=== PATIENT | male | born 1980 | race Caucasian/White ===

== ENCOUNTER 2022-01-04 08:21 | Emergency (ER) | payer BC ==
[2022-01-04 08:27] VITALS: PULSE 48; RESP 18; TEMP 97.6
[2022-01-04] MEDS ORDERED: SODIUM CHLORIDE 0.9% 1,000 ML IV STA (08:35)
[2022-01-04] MEDS ORDERED: KETOROLAC 15 MG/ML 1 ML VIAL IVP STA (08:35)
[2022-01-04 08:50] LABS: Appearance,Urine Clear (Clear); Bilirubin,Urine Negative (Negative); Blood,Urine Negative (Negative); Color,Urine Yellow; Glucose,Urine (UA) Negative (Negative); Ketones,Urine Trace (Negative); Leukocyte Esterase,Urine Negative (Negative); Nitrite,Urine Negative (Negative); PH, Urine 5.5 (5.0-8.0); Protein,Urine Trace (Negative); Specific Gravity,Urine 1.026 (1.001-1.035); Urobilinogen,Urine <2.0 mg/dL (<2.0)
--- NOTE | 2022-01-04 08:54 | ED ---
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 States it started yesterday and is worse somewhat with movement. Describes a sharp, achy. Worse in the last night somersaulted became nauseous. States it does not radiate much, isolated to the left flank as well as towards the left CVA. Denies any hematuria or dysuria. Denies any history of nephrolithiasis in himself but does endorse a history in family members. States the pain is improved today but is uncertain what caused it. States he does have a history of broken ribs on the right side, however not on the left. Denies any current nausea or chest pain. Denies any shortness of breath. His no other acute complaints at this time. Presents for further evaluation. - Related Data Home Medications Medication Instructions Recorded Confirmed No Known Home Medications 01/04/22 01/04/22 Allergies Allergy/AdvReac Type Severity Reaction Status Date / Time No Known Allergies Allergy Verified 01/04/22 10:03 Review of Systems ROS Statement: Those systems with pertinent positive or pertinent negative responses have been documented in the HPI. Review of Systems: CONST: Denies fever EYES: Denies blurry vision ENT: Denies nasal congestion C/V: Denies Chest pain RESP: Denies shortness of breath GI: Endorses left flank pain. : Denies dysuria SKIN: Denies rash. MSK: Denies joint pain. NEURO: Denies headache ROS Other: All systems not noted in ROS Statement are negative. Past Medical History Past Medical History: No Reported History Past Surgical History: Orthopedic Surgery Past Psychological History: No Psychological Hx Reported Smoking Status: Never smoker Past Alcohol Use History: Occasional Past Drug Use History: None Reported General Exam - General Exam Comments Initial Comments: General: Appears in no acute distress. HEAD: Normal with no signs of head trauma. EYES: PERRLA, EOMI, conjunctiva normal, no discharge. ENT: Hearing grossly intact, normal oropharynx. RESPIRATORY: Clear breath sounds bilaterally. No wheezes, rales, or rhonchi. C/V: Regular rate and rhythm. S1 and S2 auscultated, no edema, peripheral pulses 2+ and intact throughout ABD: Abd is soft, nontender, nondistended. There is some mild left flank tenderness to palpation with what appears to be slight radiation towards the left CVA. Seems to be more anterior posterior and saline to the left CVA. Could be musculoskeletal in nature, but cannot rule out symptomatic nephrolithiasis. EXT: Normal range of motion, no obvious deformity SKIN: No rashes or lesions observed on exposed skin. NEURO: Alert and oriented 4. Limitations: no limitations Course Vital Signs 01/04/22 01/04/22 08:24 11:18 Temperature 97.6 F Pulse Rate 48 L Respiratory 18 18 Rate Blood Pressure 116/68 104/63 O2 Sat by Pulse 100 98 Oximetry Medical Decision Making - Medical Decision Making Based on the patient's presentation and physical exam, patient could be having symptomatic left nephrolithiasis versus muscular skeletal pain. Did recommend that we obtain a urine study, x-rays, as well as basic labs. He was in agreement this plan. Will be symptomatically treated with IV fluids and pain meds. Vital signs are within normal limits. 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 Laboratory studies are all unremarkable. There was a delay in obtaining CMP due to clotting 2. Patient does have trace ketones in urine but otherwise unremarkable. Imaging revealed a possible right-sided pneumonia versus atelectasis, and patient has no symptoms and does not clinically correlate. Likely atelectasis. KUB x-ray reveals no acute findings. Renal ultrasound reveals no acute findings. On reevaluation, patient is feeling improved. I discussed is negative workup. I do believe this is likely muscle strain. He was in agreement. Patient was instructed to use [id number] analgesia. He will be discharged home at this time with close follow-up with PCP, who is in [facility]. Patient will return if he has any further complaints while he is in the area. I instructed the patient to follow up with their PCP in the next 3 days. I explained that the patient should return to the emergency department if they experience any worsening symptoms. Strict return precautions were discussed with the patient. The patient expressed understanding of these instructions. I answered all questions that the patient had. The patient was discharged home in good condition with their prescriptions and follow up information. - Lab Data Result diagrams: 01/04/22 08:39 01/04/22 10:05 Lab Results 01/04/22 01/04/22 01/04/22 Range/Units 08:39 08:39 10:05 WBC 8.7 (3.8-10.6) k/uL RBC 4.19 L (4.30-5.90) m/uL Hgb 13.9 (13.0-17.5) gm/dL Hct 40.6 (39.0-53.0) % MCV 96.9 (80.0-100.0) fL MCH 33.3 (25.0-35.0) pg MCHC 34.3 (31.0-37.0) g/dL RDW 12.2 (11.5-15.5) % Plt Count 206 (150-450) k/uL MPV 8.0 Neutrophils % 74 % Lymphocytes % 14 % Monocytes % 7 % Eosinophils % 4 % Basophils % 1 % Neutrophils # 6.4 (1.3-7.7) k/uL Lymphocytes # 1.2 (1.0-4.8) k/uL Monocytes # 0.6 (0-1.0) k/uL Eosinophils # 0.3 (0-0.7) k/uL Basophils # 0.1 (0-0.2) k/uL Sodium 138 (137-145) mmol/L Potassium 4.5 (3.5-5.1) mmol/L Chloride 106 (98-107) mmol/L Carbon Dioxide 27 (22-30) mmol/L Anion Gap 5 mmol/L BUN 12 (9-20) mg/dL Creatinine 0.83 (0.66-1.25) mg/dL Est GFR (CKD-EPI)AfAm >90 (>60 ml/min/1.73 sqM) Est GFR (CKD-EPI)NonAf >90 (>60 ml/min/1.73 sqM) Glucose 92 (74-99) mg/dL Calcium 8.6 (8.4-10.2) mg/dL Total Bilirubin 1.0 (0.2-1.3) mg/dL AST 19 (17-59) U/L ALT 14 (4-49) U/L Alkaline Phosphatase 55 (38-126) U/L Total Protein 6.3 (6.3-8.2) g/dL Albumin 3.8 (3.5-5.0) g/dL Urine Color Yellow Urine Appearance Clear (Clear) Urine pH 5.5 (5.0-8.0) Ur Specific [place] 1.026 (1.001-1.035) Urine Protein Trace H (Negative) Urine Glucose (UA) Negative (Negative) Urine Ketones Trace H (Negative) Urine Blood Negative (Negative) Urine Nitrite Negative (Negative) Urine Bilirubin Negative (Negative) Urine Urobilinogen <2.0 (<2.0) mg/dL Ur Leukocyte Esterase Negative (Negative) Disposition Clinical Impression: Muscle strain Disposition: HOME SELF-CARE Condition: Good Instructions (If sedation given, give patient instructions): Muscle Strain (ED) Is patient prescribed a controlled substance at d/c from ED?: No Referrals: None,Stated [Primary Care Provider] - 1-2 days Time of Disposition: 10:45
[2022-01-04 09:13] LABS: Basophils # (A) 0.1 k/uL (0-0.2); Basophils % (A) 1 %; Eosinophils # (A) 0.3 k/uL (0-0.7); Eosinophils % (A) 4 %; HCT 40.6 % (39.0-53.0); HGB 13.9 gm/dL (13.0-17.5); Lymphocytes # (A) 1.2 k/uL (1.0-4.8); Lymphocytes % (A) 14 %; MCH 33.3 pg (25.0-35.0); MCHC 34.3 g/dL (31.0-37.0); MCV 96.9 fL (80.0-100.0); Monocytes # (A) 0.6 k/uL (0-1.0); Monocytes % (A) 7 %; Neutrophils # (A) 6.4 k/uL (1.3-7.7); Neutrophils % (A) 74 %; Platelet Count 206 k/uL (150-450); RBC 4.19 m/uL (4.30-5.90); RDW 12.2 % (11.5-15.5); WBC 8.7 k/uL (3.8-10.6)
--- NOTE | 2022-01-04 09:13 | XR ---
EXAMINATION TYPE: XR chest 2V DATE OF EXAM: 01/04/2022 COMPARISON: NONE HISTORY: Abdominal pain TECHNIQUE: Frontal and lateral views of the chest are obtained. FINDINGS: There is patchy density in the right midlung, increased attenuation noted at the posterior costophrenic sulcus on the lateral exam, likely in the right. No evident pneumothorax. The osseous s tructures are remarkable for postop change the left clavicle. IMPRESSION: Correlate for right lower lobe pneumonia, there may be associated effusion.
--- NOTE | 2022-01-04 09:37 | XR ---
KUB HISTORY: Abdominal pain KUB submitted on 2 images, comparison to chest x-ray same date Retained fecal debris is present within the colon. No evident pneumoperitoneum or bowel obstruction. There is a spinal curvature. Bone mineralization is normal. Probable vascular calcifications noted wi thin the pelvis. Question some patchy density in the right lower lobe. IMPRESSION: No acute abnormality within the abdomen. Correlate for pneumonia.
--- NOTE | 2022-01-04 09:58 | US ---
EXAMINATION TYPE: US renals and bladder DATE OF EXAM: 01/04/2022 COMPARISON: NONE CLINICAL HISTORY: left flank pain. Left flank pain, nausea EXAM MEASUREMENTS: Right Kidney: 9.4 x 3.9 x 5.2 cm Left Kidney: 9.3 x 5.0 x 4.0 cm Right Kidney: No hydronephrosis or masses seen Left Kidney: No hydronephrosis or masses seen Bladder: not distended There is no evidence for hydronephrosis at this point in time. Cortical medullary differentiation is maintained within the kidneys. No nephrolithiasis is seen. No masses are identified. IMPRESSION: No evident hydronephrosis or renal calculus
[2022-01-04 10:42] LABS: ALT 14 U/L (4-49); AST 19 U/L (17-59); African American GFR (CKD) >90 (>60 ml/min/1.73 sqM); Albumin 3.8 g/dL (3.5-5.0); Alkaline Phosphatase 55 U/L (38-126); Anion Gap 5 mmol/L; Blood Urea Nitrogen 12 mg/dL (9-20); Calcium 8.6 mg/dL (8.4-10.2); Carbon Dioxide 27 mmol/L (22-30); Chloride 106 mmol/L (98-107); Glucose 92 mg/dL (74-99); Non-African American GFR(CKD) >90 (>60 ml/min/1.73 sqM); Potassium 4.5 mmol/L (3.5-5.1); Sodium 138 mmol/L (137-145); Total Protein 6.3 g/dL (6.3-8.2)
[2022-01-04 11:24] VITALS: BP 104/63
== END 2022-01-04 11:25 | disposition home or self-care (01) ==
LOC: EC 08:21
DX: S39.012A Strain of muscle, fascia and tendon of lower back, initial encounter (principal); X58.XXXA Exposure to other specified factors, initial encounter
CPT/HCPCS: 36415; 80053; 85025; 81003; 71046; 74018; 76770; 96374; 99284; 96361; J1885